=== PATIENT | female | born 1970 | race Caucasian/White ===

== ENCOUNTER 2018-06-23 20:34 | Observation (INO) ==
[2018-06-23 22:33] LABS: Basophils # 0.1 K/mcL (0.0-0.2); Basophils % 0.6 %; Eosinophils # 0.1 K/mcL (0.0-0.6); Eosinophils % 1.6 %; Hematocrit 36.5 % (35.3-44.9); Hemoglobin 12.3 g/dL (11.5-15.4); Immature Granulocytes % 0.3 % (0-4); Lymphocytes # 2.5 K/mcL (0.6-4.6); Lymphocytes % 31.1 %; Mean Corpuscular HGB Conc 33.7 g/dL (31.6-35.5); Mean Corpuscular Hemoglobin 30.6 pg (28.0-33.3); Mean Corpuscular Volume 90.8 fL (83.0-100.0); Mean Platelet Volume 10.2 fL (9.4-12.4); Monocytes # 0.6 K/mcL (0.0-1.3); Monocytes % 7.6 %; Neutrophils # 4.7 K/mcL (1.6-8.9); Platelet Count 241 K/mcL (140-400); Red Blood Count 4.02 M/mcL (3.82-4.97); Red Cell Distribution Width 13.5 % (11.5-14.5); Segmented Neutrophils % 58.8 %
[2018-06-23] MEDS ORDERED: Aspirin 325 MG TABLET PO ONE (22:51)
[2018-06-23 22:52] LABS: BUN/Creatinine Ratio 26 (6-26); Blood Urea Nitrogen 17 mg/dL (6-20); Calcium 9.3 mg/dL (8.6-10.3); Carbon Dioxide 26 mEq/L (23-29); Chloride 107 mEq/L (98-107); Glucose 102 mg/dL (70-105); Osmolality,Calculated 290 (280-300); Potassium 3.8 mEq/L (3.5-5.1); Sodium 139 mEq/L (136-145); eGFR For Non-African Americans > 60 (> 60)
[2018-06-23] MEDS: Nitroglycerin 0.4 MG TAB.SUBL SL PRN ×2 (23:10→23:15)
--- NOTE | 2018-06-23 23:17 | Emergency Department Note ---
Disposition Clinical Impression: Unstable angina Disposition: Admitted As Inpatient Referrals: Bambi Lin MD [Primary Care Provider] - General Adult HPI - General Chief complaint: ED Chest Pain Stated complaint: CP Time Seen by Provider: 06/23/18 22:10 Source: patient Limitations: no limitations - History of Present Illness Pain Scale: 8 - Related Data Home Medications Medication Instructions Recorded Confirmed Sertraline [Zoloft] 25 mg PO QAM 09/11/15 10/16/15 Breo Ellipta 100-25 Mcg INH 11/10/17 Previous Rx's Medication Instructions Recorded Oseltamivir [Tamiflu] 75 mg PO BID #10 capsule 11/10/17 Allergies Allergy/AdvReac Type Severity Reaction Status Date / Time Penicillins [PCN] Allergy Hives Verified 06/23/18 20:44 venom-honey bee Allergy Anaphylaxis Verified 06/23/18 20:44 [bee venom (honey bee)] Past Medical History - Past Medical History Medical history: Reports: COPD Surgical history: Reports: appendectomy, cholecystectomy Psychiatric history: Reports: anxiety - Social History Smoking Status: Current every day smoker Smokeless Tobacco Status: No Alcohol use: Reports: none Drug use: Reports: none Physical Exam - General Limitations: no limitations General appearance: alert Course Vital Signs Temperature 98.2 F 06/23/18 20:40 Pulse Rate 73 06/23/18 20:40 Respiratory Rate 20 06/23/18 20:40 Blood Pressure 118/79 06/23/18 20:40 O2 Sat by Pulse Oximetry 99 06/23/18 20:40 Temperature 98.2 F 06/23/18 20:40 Pulse Rate 73 06/23/18 20:40 Respiratory Rate 20 06/23/18 20:40 Blood Pressure 118/79 06/23/18 20:40 O2 Sat by Pulse Oximetry 99 06/23/18 20:40 Oxygen Delivery Oxygen Delivery Room Air Medical Decision Making - Lab Data Result diagrams: 06/23/18 20:55 06/23/18 20:55 Lab Results 06/23/18 06/23/18 Range/Units 20:55 20:55 WBC 7.9 (4.3-11.1) K/mcL RBC 4.02 (3.82-4.97) M/mcL Hgb 12.3 (11.5-15.4) g/dL Hct 36.5 (35.3-44.9) % MCV 90.8 (83.0-100.0) fL MCH 30.6 (28.0-33.3) pg MCHC 33.7 (31.6-35.5) g/dL RDW 13.5 (11.5-14.5) % Plt Count 241 (140-400) K/mcL MPV 10.2 (9.4-12.4) fL Immature Gran % 0.3 (0-4) % Seg Neutrophils % 58.8 % Lymphocytes % 31.1 % Monocytes % 7.6 % Eosinophils % 1.6 % Basophils % 0.6 % Neutrophils # 4.7 (1.6-8.9) K/mcL Lymphocytes # 2.5 (0.6-4.6) K/mcL Monocytes # 0.6 (0.0-1.3) K/mcL Eosinophils # 0.1 (0.0-0.6) K/mcL Basophils # 0.1 (0.0-0.2) K/mcL Sodium 139 (136-145) mEq/L Potassium 3.8 (3.5-5.1) mEq/L Chloride 107 (98-107) mEq/L Carbon Dioxide 26 (23-29) mEq/L BUN 17 (6-20) mg/dL Creatinine 0.65 (0.60-1.20) mg/dL Est GFR ( Amer) > 60 (> 60) Est GFR (Non-Af Amer) > 60 (> 60) BUN/Creatinine Ratio 26 (6-26) Glucose 102 (70-105) mg/dL Calculated Osmolality 290 (280-300) Calcium 9.3 (8.6-10.3) mg/dL Attestation Statement - Attestation Attestation: I examined this patient and my medical decision-making was reviewed with the Resident Physician. I agree with the documented findings, disposition and treatment plan as described except to the extent set forth below. 47-year-old female presented to the emergency room for left sided chest pain and pressure radiating into her left arm. Started around 8 PM. Feels like her left arm feels heavy and weird. She is having lots of left-sided chest pain. She states she had some nausea and diaphoresis earlier in the day. She has a history of Takotsubo's syndrome a few years ago. ekg with some lateral t wave inversions. CXR shows possible lingular and right middle lobe infiltrates. We will give her oral Zithromax. She has no pneumonia symptoms. She denies any cough or sputum production. No documented fevers. Admit for ACS evaluation due to her history.
--- NOTE | 2018-06-23 23:24 | Emergency Department Note ---
Disposition Clinical Impression: Abnormal chest x-ray Chest pain Qualifiers: Chest pain type: unspecified Qualified Code(s): R07.9 - Chest pain, unspecified Disposition: Admitted As Inpatient Condition: Good Referrals: Bambi Lin MD [Primary Care Provider] - Forms: ED Satisfaction Letter General Adult HPI - General Chief complaint: ED Chest Pain Stated complaint: CP Time Seen by Provider: 06/23/18 22:10 Source: patient Mode of arrival: ambulatory Limitations: no limitations Nursing Notes Reviewed: Yes Vital Signs Reviewed: Yes - History of Present Illness HPI Narrative: 47-year-old female with significant past medical history of takotsubo presenting to the emergency department chief complaint of chest pain. Patient states it started around 8 PM this evening. She started feeling a heaviness and weakness into her left arm and it radiated into the left side of her chest. She felt diaphoretic and had shortness of breath. Patient still having chest pain at this time. Patient denies any recent illnesses, fevers or cough. Denies any known sick contacts. Denies any stents or any anticoagulation. Pain Scale: 8 - Related Data Home Medications Medication Instructions Recorded Confirmed Sertraline [Zoloft] 25 mg PO QAM 09/11/15 10/16/15 Breo Ellipta 100-25 Mcg INH 11/10/17 Previous Rx's Medication Instructions Recorded Oseltamivir [Tamiflu] 75 mg PO BID #10 capsule 11/10/17 Allergies Allergy/AdvReac Type Severity Reaction Status Date / Time Penicillins [PCN] Allergy Hives Verified 06/23/18 20:44 venom-honey bee Allergy Anaphylaxis Verified 06/23/18 20:44 [bee venom (honey bee)] All systems ED: reviewed and negative except as stated. Constitutional: Denies: fever, chills Eyes: Reports: as per HPI ENT ED: Reports: as per HPI Cardiovascular: Reports: chest pain. Denies: palpitations Respiratory: Reports: dyspnea. Denies: cough, wheezes, hemoptysis Gastrointestinal: Reports: nausea Genitourinary: Reports: as per HPI Musculoskeletal: Reports: as per HPI Integumentary: Reports: as per HPI Neurological: Denies: numbness, paresthesias Psychiatric: Reports: as per HPI Endocrine: Reports: as per HPI Hematological/Lymphatic: Reports: as per HPI Allergic/Immunologic: Reports: as per HPI Past Medical History - Past Medical History Attestation: Yes The following information was validated with the patient. Medical history: Reports: COPD Surgical history: Reports: appendectomy, cholecystectomy Psychiatric history: Reports: anxiety - Social History Smoking Status: Current every day smoker Smokeless Tobacco Status: No Alcohol use: Reports: none Drug use: Reports: none Physical Exam - General Limitations: no limitations General appearance: alert, in no apparent distress - Head Head exam: atraumatic, normocephalic, normal inspection - Eye Eye exam: Present: normal appearance. Absent: scleral icterus, conjunctival injection - ENT ENT exam: normal exam, mucous membranes moist - Neck Neck exam: Present: normal inspection, full ROM. Absent: tenderness, meningismus - Chest Chest inspection: Present: normal inspection, symmetric chest wall rise. Absent : tenderness, rash - Respiratory Respiratory exam: Present: normal lung sounds bilaterally. Absent: respiratory distress, wheezes - Cardiovascular Cardiovascular exam: Present: regular rate, normal rhythm, normal heart sounds - Abdominal Exam Abdominal exam: Present: soft, Non-Tender. Absent: distention, guarding, rebound - Extremities Exam Extremities exam: Present: normal inspection, full ROM - Neurological Exam Neurological exam: Present: alert, oriented X3 - Psychiatric Psychiatric exam: Present: normal affect, normal mood - Skin Skin exam: Present: warm, intact Course Course Narrative: 47-year-old female presenting for chest pain. Patient states no stents or anticoagulation. Tried nitroglycerin spray at home minute mildly relieved her pain. Patient still having chest pain at this time. Physical exam benign. She is alert and or 3 in the room with stable vital signs. We will provide the patient with aspirin and nitroglycerin trial. We will perform a chest pain workup including CBC, BMP, troponin, EKG and chest x-ray. Disposition most likely admission the pending results. Patient agrees with this plan. - Reevaluation(s) Reevaluation #1: Laboratory analysis benign. X-ray shows possible right middle lobe pneumonia. We will provide her with by mouth Zithromax at this time. Nitroglycerin trial completely relieved patient's pain. She remains alert and oriented 3 in the room with stable vital signs. At this time will plan to admit this patient for further chest pain workup. Patient agrees with this plan. I spoke with the hospitalist electronic warfare operator Dr. Rivera who agrees to accept the patient at this time. Vital Signs Temperature 98.2 F 06/23/18 20:40 Pulse Rate 73 06/23/18 20:40 Respiratory Rate 20 06/23/18 20:40 Blood Pressure 118/79 06/23/18 20:40 O2 Sat by Pulse Oximetry 99 06/23/18 20:40 Temperature 98.2 F 06/23/18 20:40 Pulse Rate 84 06/23/18 23:17 Respiratory Rate 18 06/23/18 23:17 Blood Pressure 101/76 06/23/18 23:17 O2 Sat by Pulse Oximetry 96 06/23/18 23:17 Oxygen Delivery Oxygen Delivery Room Air Medical Decision Making - Lab Data Result diagrams: 06/23/18 20:55 06/23/18 20:55 Lab Results 06/23/18 06/23/18 Range/Units 20:55 20:55 WBC 7.9 (4.3-11.1) K/mcL RBC 4.02 (3.82-4.97) M/mcL Hgb 12.3 (11.5-15.4) g/dL Hct 36.5 (35.3-44.9) % MCV 90.8 (83.0-100.0) fL MCH 30.6 (28.0-33.3) pg MCHC 33.7 (31.6-35.5) g/dL RDW 13.5 (11.5-14.5) % Plt Count 241 (140-400) K/mcL MPV 10.2 (9.4-12.4) fL Immature Gran % 0.3 (0-4) % Seg Neutrophils % 58.8 % Lymphocytes % 31.1 % Monocytes % 7.6 % Eosinophils % 1.6 % Basophils % 0.6 % Neutrophils # 4.7 (1.6-8.9) K/mcL Lymphocytes # 2.5 (0.6-4.6) K/mcL Monocytes # 0.6 (0.0-1.3) K/mcL Eosinophils # 0.1 (0.0-0.6) K/mcL Basophils # 0.1 (0.0-0.2) K/mcL Sodium 139 (136-145) mEq/L Potassium 3.8 (3.5-5.1) mEq/L Chloride 107 (98-107) mEq/L Carbon Dioxide 26 (23-29) mEq/L BUN 17 (6-20) mg/dL Creatinine 0.65 (0.60-1.20) mg/dL Est GFR ( Amer) > 60 (> 60) Est GFR (Non-Af Amer) > 60 (> 60) BUN/Creatinine Ratio 26 (6-26) Glucose 102 (70-105) mg/dL Calculated Osmolality 290 (280-300) Calcium 9.3 (8.6-10.3) mg/dL Troponin I < 0.03 (< 0.04) ng/mL - EKG Data EKG #1 EKG attestation: Yes I reviewed and interpreted this EKG. EKG results narrative: Sinus rhythm. Nonspecific T-wave abnormality. [address] interval 176, QRS 88, QTC 398. No sign of acute ST segment elevation or ischemia. Compared to previous EKG completed on 02/10/2016 no significant changes noted.
[2018-06-23 23:36] LABS: Troponin I < 0.03 ng/mL (< 0.04)
[2018-06-23] MEDS ORDERED: Azithromycin 250 MG TABLET PO ONE (23:44)
[2018-06-24] MEDS ORDERED: Naloxone 0.4 MG/ML INJ IVP PRN (07:50)
[2018-06-24] MEDS: Azithromycin 250 MG TABLET PO SCH (08:51)
--- NOTE | 2018-06-24 10:20 | Internal Med History&Physical ---
Date of Encounter: 06/24/18 Time of Encounter: 10:17 Internal Medicine - H&P: HPI Chief complaint: chest pain History of present illness: Ms. Jacob is a 47 year old female past medical history of takotsubo cardiomyopathy, COPD, anxiety comes in with complain of chest pain restarted 8 PM yesterday. Was associated with nausea on her rate to ER. She also experienced diaphoresis and was clammy along with the chest pain. Chest pain was on the left side of her chest after which she felt heaviness on her left arm as well as her neck. Denied any vomiting or palpitation or lightheadedness. She had associated shortness of breath for about a week which was mild. Denies any fevers or chills. She has been feeling tired for past weeks. She has ongoing stress taking care of her parents or old. She has history of takotsubo cardiomyopathy in 2014 when she had a catheter which showed 30% LAD, EF of 50% and otherwise clean coronaries. She denies any abdominal pain back pain urinary or bowel complaints. She took nitroglycerin glycerin at home which helped. Past Med Surg Social Fam HX - Past Medical History Medical history: COPD Additional medical history: emphysema, takutsubo Psychiatric history: anxiety - Past Surgical History Surgical History: appendectomy, cholecystectomy Additional surgical history: tubal ligation. uterine ablasion. lithotripsy - Social History Smoking Status: Current every day smoker Packs per day: half Smokeless Tobacco Status: No Alcohol use: none Drug use: none - Family History Father Hx Family Cardiac Disorders: Yes (AK at age 60) Sister Hx Family Cardiac Disorders: Yes (AK at age 50) Daughter Hx Family Cardiac Disorders: Yes (congenital heart disease, ASD shunt) Hx Family Cancer: (MDS) Hx Family Neuromuscular Disorders: (Arthritis) Mother Adopted: No Family Member Ethnicity: Non- Living Status: Still Living Hx Family Cardiac Disorders: No Hx Family Respiratory Disorders: No Hx Family Cancer: Yes (MDS) Hx Family GI Disorders: No Hx Family Endocrine Disorder: Yes (DM) Hx Family Neuromuscular Disorders: No Hx Family Neurologic Disorders: No Hx Family HEENT Disorders: No Hx Family Autoimmune Disorders: Yes (Leukemia) Internal Medicine - H&P: Meds Fluticasone/Vilanterol [Breo Ellipta 100-25 Mcg INH] 1 puff IH DAILY 11/10/17 [ History] Sertraline [Zoloft] 25 mg PO DAILY 06/24/18 [History] 3 Allergy/AdvReac Type Severity Reaction Status Date / Time Penicillins [PCN] Allergy Hives Verified 06/23/18 20:44 venom-honey bee Allergy Anaphylaxis Verified 06/23/18 20:44 [bee venom (honey bee)] All Systems PM: A 10-system review of systems was performed and is negative for pertinent findings except as documented above in the HPI. - Constitutional Vitals: Temp Pulse Resp BP Pulse Ox 97.3 F L 81 17 111/72 96 06/24/18 07:17 06/24/18 07:17 06/24/18 07:17 06/24/18 07:17 06/24/18 07:17 General appearance: Present: A&O X 3, no acute distress Exam: Constitutional: Vitals as noted. Conversant. No Apparent Distress. Well grommed. No obvious deformities. Eyes exam: Sclera white, conjunctiva clear, no lid lag, PEARLA. ENT exam: Grossly normal hearing. Nasophargeal and Oropharyngeal exam unremarkable. Moist mucus membranes. No JVD, carotid bruit, no cervical lymphadenopathy. no thyromegaly or mass. Respiratory exam: Clear to auscultation bilaterally. No accessory muscle use, rales, rhonchi or wheezes Cardiovascular exam: RRR, +S1, +S2. no murmur, gallop, rubs. No chest wall tenderness GI/Abdominal exam: Soft, Non-tender, Non-distended, normal bowel sounds, soft, no peritoneal signs. no orgenomegaly or mass appreciated. no hernia. Musculoskeletal exam: full ROM, no atrophy or deformity noted. no edema or cyanosis, warm, pulses palpable and symmetrical in UE/LE. no calf tenderness. Neurological exam: AO X3, CN II-XII grossly intact, grossly normal motor and sensory exam. Normal muscle tone and reflexes. Skin exam: No skin rash, lesions or ulcers noted. no purpura or ecchymosis. Pych: Good insight and judgment. Intact memory. AOx3. Mood and affect Internal Med - H&P Results - Labs CBC & Chem 7: 06/23/18 20:55 06/23/18 20:55 Labs: Cardiac Enzymes 06/24/18 Range/Units 08:06 Troponin I < 0.03 (< 0.04) ng/mL - EKG Data -: EKG Interpreted by Myself (new t wave inversion in Lateral leads) EKG shows normal: sinus rhythm Rate: normal - EKG Data Prior EKG available for review: yes - Assessment and plan (1) Chest pain Current Visit: Yes Status: Acute Assessment and plan: Patient with left-sided chest pain concerning from cardiac cause - Currently chest pain-free - Patient with history of Takasugi cardiomyopathy in 2014 which showed clean coronaries with 30% LAD. Echo at that time showed EF of 60% otherwise unremarkable. - current EKG with some t wave inversion in lateral leads. Chest x-ray did shows infiltrate with in right middle lobe and lingula. - First troponin negative. Will trend troponin. - chest pain could be from pneumonia however with significant family history and the nature of pain we will consult cardiology. Qualifiers: Chest pain type: unspecified Qualified Code(s): R07.9 - Chest pain, unspecified (2) Pneumonia Current Visit: Yes Status: Acute Assessment and plan: - Will treat for Community acquired pneumonia. - Continue azithromycin for 4 more days Qualifiers: Qualified Code(s): J18.9 - Pneumonia, unspecified organism (3) COPD (chronic obstructive pulmonary disease) Current Visit: Yes Status: Acute Assessment and plan: Continue home medication Qualifiers: Qualified Code(s): J44.9 - Chronic obstructive pulmonary disease, unspecified (4) DVT prophylaxis Current Visit: Yes Status: Acute Assessment and plan: - Lovenox - Time Spent With Patient Total time spent is greater than 50% in coordination of care (as documented) at patient's floor/unit and/or counseling patient:
[2018-06-24] MEDS: (Fluticasone/Vilanterol [Breo Ellipta 100-25 Mcg Inh] IH SCH (11:18)
--- NOTE | 2018-06-24 12:03 | Cardiology Consult Note ---
<Herson Caballero R - Last Filed: 06/24/18 12:58> Date of Encounter: 06/24/18 Time of Encounter: 12:02 Assessment and Plan (1) Chest pain Current Visit: Yes Status: Acute Presents with chest pain that occurred at rest, left arm heaviness/pain, chest pain with radiation to left shoulder. Associated nausea and diaphoresis. Relief with nitro. Recurrence of CP last night that resolved spontaneously. EKG no significant change from prior. Troponins negative x 2. [facility] 09/2015 with mild disease. 30% distal LAD, all other arteries angiographically normal. Pt reports being under a significant amount of stress with taking care of her parents. Suspect noncardiac given essentially negative [facility] less than 3 years ago. Also with mild infiltrates on CXR on admission. Afebrile, normal WBC. Primary team started PO Azithromycin. Continue 81mg ASA daily. TTE to evaluate structure and function. Also endorses mild worsening dyspnea in the past week. If no significant findings on TTE, anticipate sign off. Can consider outpt stress test. Qualifiers: Chest pain type: unspecified Qualified Code(s): R07.9 - Chest pain, unspecified Discussion w patient/family: The assessment and plan as outlined above was discussed with the patient and/or family members who expressed understanding and agreement. All questions were answered. Thank you for involving us in the care of your patient. Please call with any questions. I will discuss all the above with Dr. Herrmann and make changes as necessary. History of Present Illness Consult date: 06/24/18 Requesting physician: Elisa Thomas Consult reason: Chest pain Chief complaint: chest pain History of present illness: Ms. Jacob is a 47 year old female with PMH of mild CAD on [facility] 09/2015, COPD, tobacco abuse, anxiety comes in with complain of chest pain restarted 8 PM yesterday at rest. Her left arm initially felt heavy, then developed left sided chest pain and arm pain, radiation to left shoulder associated with nausea and diaphoresis. She reports fatigue and dyspnea over recent weeks. Admits to being under excessive amount of stress due to taking care of her parents. [facility] 09/2015 30% distal LAD, other arteries angiographically free of disease. Troponins negative x 2. Reports her pain was relieved with nitro, had one recurrence of pain since being admitted that spontaneously resolved. CP free currently. Cardiology consulted for further recs. Prior CV testing: [facility] 09/11/15: Mild atherosclerotic coronary artery disease. The left ventricle is normal and has normal contractility EF 50%. TTE 09/11/15: EF 60%, normal wall motion, no significant valvular dysfunction. Past Med Surg Social Fam HX - Past Medical History Medical history: COPD Additional medical history: emphysema, [place] Psychiatric history: anxiety - Past Surgical History Surgical History: appendectomy, cholecystectomy Additional surgical history: tubal ligation. uterine ablasion. lithotripsy - Social History Smoking Status: Current every day smoker Packs per day: half Smokeless Tobacco Status: No Alcohol use: none Drug use: none - Family History Father Hx Family Cardiac Disorders: Yes ([place] at age 60) Sister Hx Family Cardiac Disorders: Yes ([place] at age 50) Daughter Hx Family Cardiac Disorders: Yes (congenital heart disease, ASD shunt) Hx Family Cancer: (MDS) Hx Family Neuromuscular Disorders: (Arthritis) Mother Adopted: No Family Member Ethnicity: Non- Living Status: Still Living Hx Family Cardiac Disorders: No Hx Family Respiratory Disorders: No Hx Family Cancer: Yes (MDS) Hx Family GI Disorders: No Hx Family Endocrine Disorder: Yes (DM) Hx Family Neuromuscular Disorders: No Hx Family Neurologic Disorders: No Hx Family HEENT Disorders: No Hx Family Autoimmune Disorders: Yes (Leukemia) Medications and Allergies Fluticasone/Vilanterol [Breo Ellipta 100-25 Mcg INH] 1 puff IH DAILY 11/10/17 [ History] Sertraline [Zoloft] 25 mg PO DAILY 06/24/18 [History] 3 Allergy/AdvReac Type Severity Reaction Status Date / Time Penicillins [PCN] Allergy Hives Verified 06/23/18 20:44 venom-honey bee Allergy Anaphylaxis Verified 06/23/18 20:44 [bee venom (honey bee)] All Systems Review: The remainder of the systems were reviewed and are negative - Constitutional Constitutional: fatigue - Cardiovascular Cardiovascular: as per HPI, chest pain at rest, dyspnea at rest, dyspnea on exertion, radiating jaw, neck or arm pain - Respiratory Respiratory: dyspnea - Gastrointestinal Gastrointestinal: nausea Physical Examination Vital Signs, Last 4 Hours Temp Pulse Resp BP Pulse Ox 06/24/18 11:41 98.1 F 69 17 104/68 97 Vital Signs Temp Pulse Resp BP Pulse Ox 06/24/18 11:41 98.1 F 69 17 104/68 97 06/24/18 07:17 97.3 F L 81 17 111/72 96 06/24/18 03:31 97.7 F 67 15 103/72 96 06/24/18 01:26 97.6 F 65 16 104/66 96 06/24/18 00:33 18 101/68 06/23/18 23:17 84 18 101/76 96 06/23/18 23:11 87 16 118/87 97 06/23/18 20:40 98.2 F 73 20 118/79 99 Intake and Output 06/23/18 06/24/18 06/24/18 23:59 07:59 15:59 Intake Total 240 / 240 Balance 240 / 240 Intake: Oral 240 / 240 Other: Meal Breakfast Weight 77.746 kg 78.7 kg Patient Weight 06/24/18 23:59 Weight 78.7 kg General: Conversant, No Apparent Distress HEENT: Atraumatic, Normocephaly, Mucus Membranes Moist Neck: No JVD, Normal carotid pulses Cardiac: Reg Rate and Rhythm, Normal S1 and S2, No Murmur Lungs: Normal Breath Sounds, No Wheeze, Rales, Rhonchi Neuro: Alert and responsive, No focal deficits noted Abdomen: Soft, Non-Tender Skin: No rashes noted on visualized skin Musculoskeletal: No Chest Wall Tenderness Extremities: No Clubbing, No Cyanosis, No Edema, Normal Pulses Results 06/23/18 20:55 06/23/18 20:55 Lab Results 06/24/18 08:06 Troponin I < 0.03 Short CBC 06/23/18 Range/Units 20:55 WBC 7.9 (4.3-11.1) K/mcL Hgb 12.3 (11.5-15.4) g/dL Hct 36.5 (35.3-44.9) % Plt Count 241 (140-400) K/mcL Neutrophils # 4.7 (1.6-8.9) K/mcL BMP 06/23/18 Range/Units 20:55 Sodium 139 (136-145) mEq/L Potassium 3.8 (3.5-5.1) mEq/L Chloride 107 (98-107) mEq/L Carbon Dioxide 26 (23-29) mEq/L BUN 17 (6-20) mg/dL Creatinine 0.65 (0.60-1.20) mg/dL Glucose 102 (70-105) mg/dL Calcium 9.3 (8.6-10.3) mg/dL Cardiac Enzymes 06/24/18 06/23/18 Range/Units 08:06 20:55 Troponin I < 0.03 < 0.03 (< 0.04) ng/mL Impressions Chest X-Ray 06/23/18 20:46 IMPRESSION: Mild infiltrates within the lingula and right middle lobe. D/ / Virgil Knapp MD / Virgil Knapp MD Interpreting Provider: Virgil Knapp MD Active Medications Azithromycin (Zithromax) 250 mg PO DAILY [facility] Stop: 06/27/18 09:01 Last Admin: 06/24/18 08:51 Dose: 250 mg Enoxaparin Sodium (Lovenox) 40 mg SQ 0600 [facility] PRN Reason: Protocol Stop: 12/25/18 06:01 Naloxone HCl (Narcan) 0.4 mg IVP Q2MIN PRN PRN Reason: SEE COMMENTS Stop: 12/24/18 07:51 Nitroglycerin (Nitroglycerin) 0.4 mg SL Q5MIN PRN PRN Reason: Chest Pain Stop: 12/23/18 22:52 Last Admin: 06/23/18 23:15 Dose: 0.4 mg Pharmacy Profile Note (Patient Taking Own Medication) 0 each IH DAILY [facility] Stop: 12/24/18 10:46 Last Admin: 06/24/18 11:18 Dose: Not Given Sertraline HCl (Zoloft) 25 mg PO DAILY [facility] Stop: 12/24/18 10:46 Last Admin: 06/24/18 11:18 Dose: 25 mg - Imaging and Cardiology Echo: report reviewed Cardiac cath: report reviewed - EKG Interpretation EKG results cardiology: personally reviewed (SR), other (12 hr tele AVG HR 69, SR, no significant pauses or arrhythmias noted.) Consult Discharge Plan - Plan Referrals: Bambi Lin MD [Primary Care Provider] - 06/28/18 1:45 pm () < A - Last Filed: 06/24/18 17:29> Date of Encounter: 06/24/18 - Attending Attestation I have personally performed a face to face evaluation on this patient. I have reviewed and agree with the care plan. History and Exam by me shows: 47-year-old female smoker with atypical chest pain. Found to right middle lobe infiltrates. Obtain echocardiogram. Continue antibiotics. If echo shows LV dysfunction, and/ or wall motion abnormality, we will do stress test inpatient. Otherwise follow-up as outpatient with [facility]. Assessment and Plan Discussion w patient/family: The assessment and plan as outlined above was discussed with the patient and/or family members who expressed understanding and agreement. All questions were answered. Thank you for involving us in the care of your patient. Please call with any questions. History of Present Illness History of present illness: Ms. Jacob is a 47 year old female All Systems Review: The remainder of the systems were reviewed and are negative Physical Examination Vital Signs, Last 4 Hours Temp Pulse Resp BP Pulse Ox 06/24/18 15:15 98.1 F 75 17 116/69 98 Results 06/23/18 20:55 06/23/18 20:55 Lab Results 06/24/18 06/24/18 08:06 12:25 Troponin I < 0.03 < 0.03
[2018-06-24] MEDS: Aspirin 81 MG TAB.CHEW PO SCH (14:16)
--- NOTE | 2018-06-24 17:06 | Electrocardiograph Report ---
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
[2018-06-25] MEDS ORDERED: *HR* Enoxaparin 40 MG/0.4 ML SYRINGE SQ SCH (06:00)
--- NOTE | 2018-06-25 07:43 | Cardiology Progress Note ---
Date of Encounter: 06/25/18 Time of Encounter: 07:10 Assessment and Plan (1) Chest pain Current Visit: Yes Status: Acute Per Cardiology: Troponins negative x 3. [facility] 09/2015 with mild disease. 30% distal LAD, all other arteries angiographically normal. Pt reports being under a significant amount of stress with taking care of her parents. Suspect noncardiac given essentially negative [facility] less than 3 years ago. Also with mild infiltrates on CXR on admission. Afebrile, normal WBC. Primary team started PO Azithromycin. On asa. Assuming no significant findings on echo , cardiology will sign off, reconsult as needed, follow-up arranged. Patient verbalized understanding and agree to plan. All questions answered. Qualifiers: Chest pain type: unspecified Qualified Code(s): R07.9 - Chest pain, unspecified Discussion w patient/family: The assessment and plan as outlined above was discussed with the patient and/or family members who expressed understanding and agreement. All questions were answered. Thank you for involving us in the care of your patient. Please call with any questions. Subjective Principal diagnosis: CP Interval history: Patient denies any concerns or complaints today. Denies any chest pain. Anticipating discharge to home. Objective Vital Signs, Last 4 Hours Temp Pulse Resp BP Pulse Ox 06/25/18 04:42 98.0 F 64 16 100/65 98 General: Conversant, No Apparent Distress HEENT: Atraumatic, Normocephaly, Mucus Membranes Moist Neck: No JVD, Normal carotid pulses Cardiac: Reg Rate and Rhythm, Normal S1 and S2, No Murmur Lungs: Normal Breath Sounds, No Wheeze, Rales, Rhonchi Neuro: Alert and responsive, No focal deficits noted Abdomen: Soft, Non-Tender Skin: No rashes noted on visualized skin Musculoskeletal: No Chest Wall Tenderness Extremities: No Clubbing, No Cyanosis, No Edema, Normal Pulses Results 06/23/18 20:55 06/23/18 20:55 Lab Results Laboratory Tests 06/23/18 06/24/18 06/24/18 20:55 08:06 12:25 Troponin I < 0.03 < 0.03 < 0.03 Active Medications Aspirin (Aspirin) 81 mg PO DAILY [facility] Stop: 12/24/18 13:16 Last Admin: 06/24/18 14:16 Dose: 81 mg Azithromycin (Zithromax) 250 mg PO DAILY [facility] Stop: 06/27/18 09:01 Last Admin: 06/24/18 08:51 Dose: 250 mg Enoxaparin Sodium (Lovenox) 40 mg SQ 0600 [facility] PRN Reason: Protocol Stop: 12/25/18 06:01 Last Admin: 06/25/18 04:38 Dose: Not Given Naloxone HCl (Narcan) 0.4 mg IVP Q2MIN PRN PRN Reason: SEE COMMENTS Stop: 12/24/18 07:51 Nitroglycerin (Nitroglycerin) 0.4 mg SL Q5MIN PRN PRN Reason: Chest Pain Stop: 12/23/18 22:52 Last Admin: 06/23/18 23:15 Dose: 0.4 mg Pharmacy Profile Note (Patient Taking Own Medication) 0 each IH DAILY [facility] Stop: 12/24/18 10:46 Last Admin: 06/24/18 11:18 Dose: Not Given Sertraline HCl (Zoloft) 25 mg PO DAILY [facility] Stop: 12/24/18 10:46 Last Admin: 06/24/18 11:18 Dose: 25 mg - Imaging and Cardiology Echo: pending Consult Discharge Plan - Plan Referrals: Bambi Lin MD [Primary Care Provider] - 06/28/18 1:45 pm ()
[2018-06-25 08:15] VITALS: BP 98/65
[2018-06-25] MEDS: Aspirin 81 MG TAB.CHEW PO SCH (09:00)
[2018-06-25] MEDS: Azithromycin 250 MG TABLET PO SCH (09:00)
[2018-06-25] MEDS: (Fluticasone/Vilanterol [Breo Ellipta 100-25 Mcg Inh] IH SCH (09:01)
--- NOTE | 2018-06-25 10:01 | Internal Med Progress Note ---
Hospitalist Progress Note - Encounter Date of Encounter: 06/25/18 Time of Encounter: 09:57 - Subjective Interval History: 47 YO female entered into the ED for chest pain , arm heaviness and weakness, resolution with nitroglycerin sublingual. Past history of 30% distal LAD from [facility] on 2014. Chest x-ray showed mild infiltrates on admission. She currently is on by mouth azithromycin. Today she denies chest pain shortness of breath wheezing or cough. She is afebrile with temp of 98 extremities no acute distress she is on room air without any oxygen support today. TTE is still pending results are negative will more than likely discharge this patient today she wants to go home - Exam Vitals: Temp Pulse Resp BP Pulse Ox 98.0 F 74 18 98/65 96 06/25/18 08:11 06/25/18 08:11 06/25/18 08:11 06/25/18 08:11 06/25/18 08:11 Exam: afebrile, no acute distress - Assessment and Plan (1) Chest pain Current Visit: Yes Status: Resolved Assessment and Plan: denies chest pain , shortness of breath, productive cough, TTE Echo remains pending if normal will consider discharge today (2) COPD (chronic obstructive pulmonary disease) Current Visit: Yes Status: Acute Assessment and Plan: negative for dyspnea, remains on RA w/o shortness of breath, (3) Pneumonia Current Visit: Yes Status: Acute Assessment and Plan: Mild infiltrates linngula and right mid lobe, per CXR Continues with PO Azithromycin daily (4) DVT prophylaxis Current Visit: Yes Status: Acute Assessment and Plan: will continue per protocol - Summary of Assessment and Plan Summary of Assessment and Plan: Mrs. Chambers 47-year-old female patient was admitted through the emergency room with chest pain shortness of breath and left arm heaviness weakness with symptoms resolving with nitroglycerin sublingual as a result of workup she was found to have a right mild right mid lobe infiltrate COPD exacerbation. Today she denies chest pain shortness of breath cough hemoptysis. She remains on room air without oxygen support SPO2 of 96%. She continues to receive by mouth azithromycin. TTE echo is pending review of cardiology report shows that if it is negative she may be discharged today. We will await results. - Time Spent with Patient Total time spent is greater than 50% in coordination of care (as documented) at patient's floor/unit and/or counseling patient: less than 15 minutes Plan of Care Discussed with: patient Internal Medicine: Result - Labs CBC & Chem 7: 06/23/18 20:55 06/23/18 20:55 Labs: Cardiac Enzymes 06/24/18 Range/Units 12:25 Troponin I < 0.03 (< 0.04) ng/mL Consult Discharge Plan - Plan Referrals: Bambi Lin MD [Primary Care Provider] - 06/28/18 1:45 pm () (1) Chest pain Qualifiers: Chest pain type: other chest pain Qualified Code(s): R07.89 - Other chest pain; R07.8 - Other chest pain (2) COPD (chronic obstructive pulmonary disease) Qualifiers: COPD type: COPD with acute lower respiratory infection Qualified Code(s): J44.0 - Chronic obstructive pulmonary disease with acute lower respiratory infection (3) Pneumonia Qualifiers: Pneumonia type: due to unspecified organism Laterality: right Lung location : middle lobe of lung Qualified Code(s): J18.1 - Lobar pneumonia, unspecified organism
--- NOTE | 2018-06-25 11:18 | Event Note ---
Date of Encounter: 06/25/18 Time of Encounter: 11:20 - Cardiology Event Note Per discussion with Dr. Herrmann, echo stable. Will s/o.
--- NOTE | 2018-06-25 11:29 | Discharge Summary ---
- NOTES TO OUTPATIENT PROVIDER Notes to Outpatient Provider: 47 YO female entered into the ED for chest pain , arm heaviness and weakness, resolution with nitroglycerin sublingual. Past history of 30% distal LAD from [facility] on 2014. Chest x-ray showed mild infiltrates on admission. She currently is on by mouth azithromycin. Today she denies chest pain shortness of breath wheezing or cough. She is afebrile with temp of 98 extremities no acute distress she is on room air without any oxygen support today. TTE is still pending results are negative will more than likely discharge this patient today she wants to go home. Echo was feeling contrast has reviewed and is normal with LVEF of 60% normal left ventricular diastolic function normal right ventricular structure and function no significant valvular valvular abnormalities no evidence of PFO no evidence of pulmonary hypertension this patient may be discharged. She is to follow-up with her primary care provider and resume all medications she will be sent home with 3 more days of azithromycin for the pneumonia. Orders not resulted at time of discharge: none Date of Encounter: 06/25/18 Time of Encounter: 11:26 - Discharge Diagnosis (1) Chest pain Priority: Primary Status: Resolved Assessment and Plan: Denies chest pain , shortness of breath, chest heaviness. Has returned to baseline with stable VS. Echo is negative for structural or functional abnormality with LEVF of 60%. Discharged to home to continue with home medications. Qualifiers: Chest pain type: other chest pain Qualified Code(s): R07.89 - Other chest pain; R07.8 - Other chest pain (2) COPD (chronic obstructive pulmonary disease) Priority: Secondary Status: Chronic Assessment and Plan: negative for dyspnea, remains on RA w/o shortness of breath, Qualifiers: COPD type: COPD with acute lower respiratory infection Qualified Code(s): J44.0 - Chronic obstructive pulmonary disease with acute lower respiratory infection (3) Pneumonia Priority: Primary Status: Acute Assessment and Plan: Mild infiltrates linngula and right mid lobe, per CXR Continues with PO Azithromycin daily Qualifiers: Pneumonia type: due to unspecified organism Laterality: right Lung location: middle lobe of lung Qualified Code(s): J18.1 - Lobar pneumonia, unspecified organism (4) DVT prophylaxis Priority: Secondary Status: Acute Assessment and Plan: will continue per protocol Hospital course: Ms. Jacob is a 47 year old female 47 YO female entered into the ED for chest pain , arm heaviness and weakness, resolution with nitroglycerin sublingual. Past history of 30% distal LAD from [facility] on 2014. Chest x-ray showed mild infiltrates on admission. She currently is on by po azithromycin. Today she denies chest pain shortness of breath wheezing or cough. She is afebrile with temp of 98 extremities no acute distress she is on room air without any oxygen support today. She is back to [facility] today. Echo results are negative LEVF 60% . Patient will be discharge to home, with current home medications, and to complete her Azithromycin 250 mg daily x 3 for pneumonia. Discussed results of Echol and discharge plan, is agreeable. To f/u with PCP in 3-5 days. Discharge discussed with: patient Time spent discussing smoking cessation with patient: 3 to 10 minutes - Time Spent with Patient Total time spent providing and/or coordinating discharge services: Less than 30 minutes - Discharge Medications Prescriptions: Azithromycin [Zithromax] 250 mg PO DAILY 3 Days #3 tablet MDD 1 Home Medications: Fluticasone/Vilanterol [Breo Ellipta 100-25 Mcg INH] 1 puff IH DAILY 11/10/17 [ History] Aspirin 81 mg PO DAILY tab.chew 06/25/18 [Rx] Azithromycin [Zithromax] 250 mg PO DAILY 3 Days #3 tablet MDD 1 06/25/18 [Rx] Nitroglycerin 0.4 mg SL Q5MIN PRN tab.subl 06/25/18 [Rx] Sertraline [Zoloft] 25 mg PO DAILY tablet 06/25/18 [Rx] Allergies/Adverse Reactions: 3 Allergy/AdvReac Type Severity Reaction Status Date / Time Penicillins [PCN] Allergy Hives Verified 06/23/18 20:44 venom-honey bee Allergy Anaphylaxis Verified 06/23/18 20:44 [bee venom (honey bee)] Date of admission: 06/24/18 00:28 Primary care physician: Bambi Lin Consults: 06/24/18 10:53 Consult to Cardiology [CONS] Routine Comment: Consulting Provider: Cardiology Genie Reason for Consult: Chest pain Call Completed: Yes Discharging clinician: Dana Morrison Anticipated date of discharge: 06/25/18 - Constitutional Vitals: Temp Pulse Resp BP Pulse Ox 98.0 F 74 18 98/65 96 06/25/18 08:11 06/25/18 08:11 06/25/18 08:11 06/25/18 08:11 06/25/18 08:11 General appearance: Present: A&O X 3, no acute distress Exam: afebrile, no acute distress - Head Head exam: Present: atraumatic, normocephalic - Respiratory Respiratory exam: Present: CTAB. Absent: accessory muscle use, rales, rhonchi, wheezes - Cardiovascular Cardiovascular exam: Present: RRR, +S1, +S2. Absent: diastolic murmur, gallop, rubs, systolic murmur - GI/Abdominal GI/Abdominal exam: Present: normal bowel sounds, soft, no peritoneal signs. Absent: distended, tenderness - Extremities Exam Extremities exam: Present: warm, radial pulses palpable and symmetrical. Absent : calf tenderness, cyanotic, pedal edema - Neurological Exam Neurological exam: Present: CN II-XII intact, oriented X3, no focal deficits. Absent: pronater drift, facial droop, speech deficit - Skin Skin exam: Present: dry, intact - Patient Status Disposition: Home, Self-Care Condition: Good Functional capacity at discharge: independent ambulation Overall status at discharge: patient is back to baseline - Discharge Instructions Instructions: Chest Pain (DC), Pneumonia (DC), Chronic Obstructive Pulmonary Disease (DC) Follow Up With: Bambi Lin MD [Primary Care Provider] - 06/28/18 1:45 pm () - Diet and Activity Activity: resume usual activities as tolerated
== END 2018-06-25 12:23 | disposition home or self-care (01) ==
LOC: 3BNU 20:34 → EMEROOARM 20:34 → 3BNU 06-24 01:32
PROVIDERS: ADMIT Pediatrics; ATTEND Pediatrics

== ENCOUNTER 2019-08-10 23:54 | Observation (INO) ==
[2019-08-11] MEDS ORDERED: Aspirin 81 MG TAB.CHEW PO ONE (00:10)
[2019-08-11] MEDS: Nitroglycerin 0.4 MG TAB.SUBL SL PRN ×2 (00:32→00:38)
[2019-08-11 00:37] LABS: Prothrombin Time 11.3 Seconds (9.4-12.1)
[2019-08-11 00:38] LABS: Basophils # 0.1 K/mcL (0.0-0.2); Basophils % 0.5 %; Eosinophils # 0.1 K/mcL (0.0-0.6); Eosinophils % 1.1 %; Hematocrit 39.4 % (35.3-44.9); Hemoglobin 13.9 g/dL (11.5-15.4); Immature Granulocytes % 0.3 % (0-4); Immature Platelets 4.9 % (1.1-6.1); Lymphocytes # 2.7 K/mcL (0.6-4.6); Lymphocytes % 28.2 %; Mean Corpuscular HGB Conc 35.3 g/dL (31.6-35.5); Mean Corpuscular Hemoglobin 31.7 pg (28.0-33.3); Mean Corpuscular Volume 89.7 fL (83.0-100.0); Monocytes # 0.6 K/mcL (0.0-1.3); Monocytes % 6.4 %; Neutrophils # 6.1 K/mcL (1.6-8.9); Platelet Count 232 K/mcL (140-400); Red Blood Count 4.39 M/mcL (3.82-4.97); Red Cell Distribution Width 13.5 % (11.5-14.5); Segmented Neutrophils % 63.5 %; White Blood Count 9.6 K/mcL (4.3-11.1)
[2019-08-11 00:54] LABS: Alanine Aminotransferase 22 Units/L (7-52); Albumin 4.5 g/dL (3.5-5.7); Albumin/Globulin Ratio 1.6 (1.1-2.2); Alkaline Phosphatase 91 Units/L (34-104); Aspartate Amino Transferase 21 Units/L (13-39); BUN/Creatinine Ratio 24 (6-26); Bilirubin,Indirect 0.2 mg/dL (0.0-1.0); Bilirubin,Total 0.2 mg/dL (0.3-1.0); Blood Urea Nitrogen 12 mg/dL (6-20); Calcium 9.4 mg/dL (8.6-10.3); Carbon Dioxide 21 mEq/L (23-29); Chloride 106 mEq/L (98-107); Globulin 2.9 g/dL (2.4-3.5); Glucose 93 mg/dL (70-105); Lipase 17 Units/L (11-82); Osmolality,Calculated 285 (280-300); Potassium 3.7 mEq/L (3.5-5.1); Sodium 138 mEq/L (136-145); Total Protein 7.4 g/dL (6.4-8.9); eGFR For African Americans > 60 (> 60); eGFR For Non-African Americans > 60 (> 60)
[2019-08-11 00:55] LABS: Troponin I < 0.03 ng/mL (< 0.04)
[2019-08-11] MEDS ORDERED: Naloxone 0.4 MG/ML INJ IVP PRN (03:04)
[2019-08-11] MEDS: *HR* Heparin 5,000 UNIT/ML VIAL SQ SCH ×2 (05:46→14:20)
[2019-08-11] MEDS ORDERED: Regadenoson 0.4 MG/5 ML SYRINGE IVP ONE (06:26)
[2019-08-11] MEDS ORDERED: Budesonide/Formoterol 80/4.5 1 PUFF INH IH SCH (10:00)
[2019-08-11 11:16] VITALS: BP 107/70
== END 2019-08-11 15:22 | disposition home or self-care (01) ==
LOC: EMEROOARM 23:54 → 3BNU 23:54
PROVIDERS: ADMIT Internal Medicine; ATTEND Internal Medicine